=== PATIENT | female | born 1995 ===

== ENCOUNTER 2022-09-07 16:30 | Outpatient (CLI) | payer OTHER | END 2022-09-07 17:05 | disposition home or self-care (01) | LOC: PRENATAL 16:30 | PROVIDERS: ATTEND Obstetrics & Gynecology Maternal & Fetal Medicine | DX: O35.9XX0 Maternal care for (suspected) fetal abnormality and damage, unspecified, not applicable or unspecified (principal); O35.3XX0 Maternal care for (suspected) damage to fetus from viral disease in mother, not applicable or unspecified; Z3A.19 19 weeks gestation of pregnancy ==

== ENCOUNTER 2022-11-13 16:07 | Outpatient (CLI) | payer OTHER | END 2022-11-14 18:45 | disposition home or self-care (01) | LOC: OBS/DEL 16:07 | PROVIDERS: ATTEND Obstetrics & Gynecology | DX: O26.893 Other specified pregnancy related conditions, third trimester (principal); Z3A.30 30 weeks gestation of pregnancy ==

== ENCOUNTER 2022-11-16 17:23 | Inpatient (IN) | payer OTHER ==
[~2022-11-16] VITALS: Ht 152.4 cm; Wt 0.9 kg
== END 2022-11-21 16:49 | disposition home or self-care (01) | DRG 788 ==
LOC: LDR 17:23 → OB/GYN 11-19 06:30
PROVIDERS: ADMIT Obstetrics & Gynecology; ATTEND Obstetrics & Gynecology
PROC: 4A1HXCZ Monitoring of Products of Conception, Cardiac Rate, External Approach (ICD-10-PCS; 2022-11-16)
PROC: BU4CZZZ Ultrasonography of Uterus and Ovaries (ICD-10-PCS; 2022-11-17)
PROC: BY4FZZZ Ultrasonography of Third Trimester, Single Fetus (ICD-10-PCS; 2022-11-17)
PROC: 0UT00ZZ Resection of Right Ovary, Open Approach (ICD-10-PCS; 2022-11-19)
PROC: 10D00Z1 Extraction of Products of Conception, Low, Open Approach (ICD-10-PCS; principal; 2022-11-19 03:30)
DX: O75.89 Other specified complications of labor and delivery (principal); O34.83 Maternal care for other abnormalities of pelvic organs, third trimester; D27.0 Benign neoplasm of right ovary; O69.0XX0 Labor and delivery complicated by prolapse of cord, not applicable or unspecified; O45.8X3 Other premature separation of placenta, third trimester; O26.843 Uterine size-date discrepancy, third trimester; O26.853 Spotting complicating pregnancy, third trimester; Z3A.29 29 weeks gestation of pregnancy; Z37.0 Single live birth; Z20.822 Contact with and (suspected) exposure to COVID-19; Z3A.30 30 weeks gestation of pregnancy